=== PATIENT | male | born 1965 | race Caucasian/White ===

== ENCOUNTER 2018-09-25 12:15 | Emergency (ER) | payer BC ==
[2018-09-25] MEDS ORDERED: Bacitracin/Neomycin/Polymyxin B Oint 0.9 GM U/D Packet ONE (12:23)
[2018-09-25] MEDS ORDERED: Bacitracin/Neomycin/Polymyxin B Oint 0.9 GM U/D Packet TOP ONE (12:23)
--- NOTE | 2018-09-25 12:42 | EDM.PDOC ---
ED HPI GENERAL MEDICAL PROBLEM - General Chief Complaint: Head Injury Stated Complaint: SPLIT HEAD OPEN ON A SPRAYER Time Seen by Provider: 09/25/18 12:15 Source of Information: Reports: Patient History Limitations: Reports: No Limitations - History of Present Illness INITIAL COMMENTS - FREE TEXT/NARRATIVE: Frederic is a 53 yo male who presents to the ED with complaints of a laceration to his scalp. He states he was out spraying and was underneath and went to get up and caught the left side of the top of his scalp on the ladder. He states he didn't lose consciousness or have any neurological deficits. States the ladder just grazed his scalp. Tdap was updated a couple weeks ago. Location: Reports: Head - Related Data Allergies Allergy/AdvReac Type Severity Reaction Status Date / Time No Known Allergies Allergy Verified 04/26/16 09:42 Home Meds: Home Meds . [No Known Home Meds] 04/26/16 [History] Past Medical History HEENT History: Reports: None Cardiovascular History: Reports: None Respiratory History: Reports: None Gastrointestinal History: Reports: None Genitourinary History: Reports: None Neurological History: Reports: None Psychiatric History: Reports: None - Past Surgical History HEENT Surgical History: Reports: Tonsillectomy GI Surgical History: Reports: Hernia, Inguinal Social & Family History - Tobacco Use Smoking Status *Q: Never Smoker Tobacco Use Within Last Twelve Months: Smokeless Tobacco - Alcohol Use Alcohol Use History: Yes Alcohol Use Frequency: Socially - Recreational Drug Use Recreational Drug Use: No - Living Situation & Occupation Living situation: Reports: , with Spouse, with Family Occupation: Employed ED ROS GENERAL - Review of Systems Review Of Systems: See Below Constitutional: Reports: No Symptoms HEENT: Reports: No Symptoms Respiratory: Reports: No Symptoms Cardiovascular: Reports: No Symptoms Endocrine: Reports: No Symptoms GI/Abdominal: Reports: No Symptoms : Reports: No Symptoms Musculoskeletal: Reports: No Symptoms Skin: Reports: No Symptoms, Wound (scalp) Neurological: Denies: Confusion, Dizziness, Headache, Numbness, Seizure, Syncope , Tingling, Trouble Speaking, Difficulty Walking, Change in Speech Psychiatric: Reports: No Symptoms ED EXAM, HEAD INJURY - Physical Exam Exam: See Below Exam Limited By: No Limitations General Appearance: Alert, No Apparent Distress Head: Scalp Lacerations (3cm X 3cm laceration to left parietal area), Scalp Tenderness, Active Bleeding, Flap. No: Scalp Abrasions, Scalp Hematoma, Facial Abrasions, Facial Swelling, Facial Tenderness, Raccoon Eyes Nexus Criteria: No: Posterior, Midline Cervical Tenderness, Evidence of Intoxication, Altered Level of Consciousness, Focal Neurological Deficit, Painful Distraction Injuries Eyes: Bilateral Eye: EOMI, Normal Inspection, PERRL Ears: Normal External Exam, Normal Canal, Hearing Grossly Normal, Normal TMs Nose: Normal Inspection, Normal Mucousa, No Blood Throat/Mouth: Normal Inspection, Normal Oropharynx, Normal Voice, No Airway Compromise Neck: Non-Tender, Full Range of Motion, Normal Alignment, Normal Inspection. No : Tender Midline Respiratory: No Respiratory Distress, Lungs Clear, No Accessory Muscle Use Cardiovascular: Regular Rate, Rhythm, No Murmur Back Exam: Normal Inspection Extremities: Normal Inspection Neurologic: rn documentation II-XII nml As Tested, No Motor/Sensory Deficits, Alert, Normal Mood/Affect, Oriented x 3 Skin: Normal Color, Warm/Dry - Ruth Coma Score Best Eye Response (Ruth): (4) Open Spontaneously Best Verbal Response (Ruth): (5) Oriented Best Motor Response (Ruth): (6) Obeys Commands ED LACERATION/WOUND & CRISTOPHER PROC - Laceration/Wound Repair Left Side Head Lac/wound length in cm: 6 (3cm X 3cm flap laceration to left parietal area) Appearance: Subcutaneous, Irregular, Clean Distal NVT: Neuro & Vascular Intact Exploration/Debridement/Repair: Wound Explored, In a Bloodless Field, Explored to Base, Multiple Flaps Aligned Closed with: Marquita # of Sutures: 10 Tetanus Status Addressed: Yes Complications: No Course - Vital Signs Text/Narrative:: Initial blood pressure was 140/10, repeat was 144/95 at 1235, O2 sat 100%, Pulse 81, Respirations 16, Temp 97.9 Departure - Departure Time of Disposition: 12:46 Disposition: Home, Self-Care 01 Clinical Impression: Scalp laceration - Discharge Information Instructions: Stitches, Marquita, or Adhesive Wound Closure, Laceration Care, Adult Forms: ED Department Discharge Additional Instructions: 1) [place] out in 7 days in clinic 2) May use ibuprofen for discomfort 3) Do not soak scalp 4) May apply triple antibiotic ointment to area for water to bead off of. 5) If any neurological symptoms (headache, vision change, slurred speech or any concerns at all) recommend returning right away. - Problem List & Annotations (1) Scalp laceration SNOMED Code(s): 377942289 Code(s): S01.01XA - LACERATION WITHOUT FOREIGN BODY OF SCALP, INITIAL ENCOUNTER Status: Acute - Assessment/Plan Plan: See additional instructions. No complications. Discussed wound closure and Frederic elected to proceed with marquita. Will recheck blood pressure at staple removal appointment.
[2018-09-25 15:56] VITALS: BP 140/100
== END 2018-09-25 12:56 | disposition home or self-care (01) ==
LOC: CC.ED 12:15
DX: S01.01XA Laceration without foreign body of scalp, initial encounter (principal); F17.290 Nicotine dependence, other tobacco product, uncomplicated; W22.8XXA Striking against or struck by other objects, initial encounter
CPT/HCPCS: 12002; 99282

== ENCOUNTER 2021-11-28 07:00 | Emergency (ER) | payer BC ==
[2021-11-28 07:11] VITALS: BP 159/87; PULSE 73
== END 2021-11-28 08:40 | disposition home or self-care (01) ==
LOC: CC.ED 07:00
DX: N39.0 Urinary tract infection, site not specified (principal)
CPT/HCPCS: 81001; 99284